=== PATIENT | male | born 1955 | race Two or more races ===

== ENCOUNTER 2022-02-01 09:47 | Emergency (ER) | payer OTHER ==
[~2022-02-01] VITALS: Ht 188 cm; Wt 103.9 kg
[2022-02-01 11:19] VITALS: BP 148/93
[2022-02-01] MEDS ORDERED: FLUORESCEIN SOD OPTH TEST STRIP OP ONE (11:30)
[2022-02-01] MEDS ORDERED: CIP03OS LEFTEYE (12:06)
== END 2022-02-01 12:09 | disposition home or self-care (01) ==
LOC: ER 09:47
DX: S05.02XA Injury of conjunctiva and corneal abrasion without foreign body, left eye, initial encounter (principal); Z79.899 Other long term (current) drug therapy; W22.8XXA Striking against or struck by other objects, initial encounter; Y93.89 Activity, other specified; Y92.89 Other specified places as the place of occurrence of the external cause; Y99.8 Other external cause status
CPT/HCPCS: 70480

== ENCOUNTER → 2024-05-02 | Outpatient (CLI) | payer OTHER ==
[~2024-05-02] MED LIST: CIP03OS LEFTEYE
[2024-05-02 11:14] LABS: Urine Bacteria None Seen /hpf (None Seen)
[2024-05-02 11:32] LABS: Basophils # (auto) 0.1 10 ^3/uL (0-0.2); Basophils % (auto) 1.1 % (0.0-2.0); Eosinophils # (auto) 0.2 10 ^3/uL (0-0.8); Eosinophils % (auto) 2.6 % (0.0-7.0); Hematocrit 50.1 % (41.0-53.0); Hemoglobin 16.7 g/dL (13.5-17.5); Lymphocytes % (auto) 44.7 % (10.0-50.0); Mean Corpuscular Hemoglobin 30.2 pg (28.0-32.0); Mean Corpuscular Hgb Conc. 33.3 g/dL (32.0-36.0); Mean Corpuscular Volume 90.9 fL (80.0-100.0); Monocytes # (auto) 0.9 10 ^3/uL (0-1.3); Monocytes % (auto) 14.1 % (0.0-12.0); Neutrophils # (auto) 2.5 10 ^3/uL (1.6-8.6); Neutrophils % (auto) 37.5 % (37.0-80.0); Nucleated Red Blood Cells % 0.1 %; Platelet Count (auto) 262 10^3/uL (140-450); Red Blood Cells 5.51 10^6/uL (4.5-5.90); Red Cell Distribution Width 13.4 % (11.8-14.3); White Blood Cell 6.6 10^3/uL (4.4-10.8)
[2024-05-02 11:53] LABS: Alanine Aminotransferase 37 U/L (7-40); Alkaline Phosphatase 65 U/L (46-116); Anion Gap 11 (5-15); Calcium 9.2 mg/dL (8.7-10.4); Carbon Dioxide 21 mmol/L (20-31); Chloride 104 mmol/L (98-107); Glucose 97 mg/dL (74-106); Sodium 136 mmol/L (136-145)
[2024-05-02 11:54] LABS: BUN/Creatinine Ratio 16.3 (10.0-20.0); Blood Urea Nitrogen 21 mg/dL (9-23)
[2024-05-02 11:55] LABS: Albumin 4.5 g/dL (3.2-4.8); Aspartate Aminotransferase 32 U/L (13-40)
[2024-05-02 11:56] LABS: Bilirubin, Total 0.7 mg/dL (0.2-1.0); Cholesterol 194 mg/dL (< 200)
[2024-05-02 12:00] LABS: HDL Cholesterol 30 mg/dL (40-59); LDL Cholesterol 141 mg/dL (< 100); Potassium 3.5 mmol/L (3.5-5.1); Total Protein 8.4 g/dL (5.7-8.2); Triglycerides 153 mg/dL (< 150)
[2024-05-02 14:22] LABS: Urine Blood TRACE /uL (Negative); Urine Clarity Clear (Clear); Urine Color Light-Yellow (Yellow); Urine Mucus FEW (None Seen); Urine Protein, UAD Negative (Negative); Urine Specific Gravity 1.015 (1.001-1.035); Urine Squamous Epithelial Cell None Seen /hpf (<5); Urine Urobilinogen Normal (Negative); Urine WBC < 1 /HPF (0-3); Urine pH 5.5 (5.0-9.0)
== END | disposition home or self-care (01) ==
LOC: LAB 10:09
PROVIDERS: ATTEND Internal Medicine
DX: I12.9 Hypertensive chronic kidney disease with stage 1 through stage 4 chronic kidney disease, or unspecified chronic kidney disease (principal); N18.2 Chronic kidney disease, stage 2 (mild); E83.52 Hypercalcemia
CPT/HCPCS: 36415; 80053; 80061; 81001; 83036; 84439; 84443; 85025; 86703; 86803

== ENCOUNTER → 2024-09-14 | Outpatient (CLI) | payer OTHER ==
[2024-09-15 10:07] LABS: Anti-Nuclear Antibody Direct Negative (Negative)
== END | disposition home or self-care (01) ==
LOC: LAB 15:11
PROVIDERS: ATTEND Internal Medicine
DX: B19.20 Unspecified viral hepatitis C without hepatic coma (principal)
CPT/HCPCS: 36415; 85652; 86038; 86141; 87902

== ENCOUNTER 2025-01-12 14:57 | Outpatient (CLI) | payer OTHER | END 2025-01-12 17:00 | disposition home or self-care (01) | LOC: LAB 14:57 | PROVIDERS: ATTEND Internal Medicine | DX: R32 Unspecified urinary incontinence (principal); Z12.5 Encounter for screening for malignant neoplasm of prostate; Z12.11 Encounter for screening for malignant neoplasm of colon | CPT/HCPCS: 84153 ==

== ENCOUNTER → 2025-01-17 | Outpatient (CLI) | payer OTHER | END | disposition home or self-care (01) | LOC: LAB 16:12 | PROVIDERS: ATTEND Internal Medicine | DX: R32 Unspecified urinary incontinence (principal); Z12.11 Encounter for screening for malignant neoplasm of colon; Z12.5 Encounter for screening for malignant neoplasm of prostate | CPT/HCPCS: 82274 ==

== ENCOUNTER 2025-02-06 13:58 | Outpatient (CLI) | payer OTHER ==
--- NOTE | 2025-02-08 18:16 | DVHSR ---
APPROVED REPORT EXAM: Two-dimensional and M-mode echocardiogram with Doppler and color Doppler. INDICATION Heart Failure RISK FACTORS Height: 74, Weight: 242 DIMENSIONS LVDd (3.8-5.7cm) LA (2D) 5.5 (1.9-4.0cm) Aortic Root 3.6 (2.0-3.7cm) LVDs (2.5-4.0cm) LA (MM) (1.9-4.0cm) Aortic Cusp Exc 1.9 (1.5-2.0cm) EF (%) 70.0 (55-70%) Rt. Atrium (1.9-4.0cm) Asc. Aorta cm Mitral Valve Mitral Mitral Stenosis E wave 1.04m/s MV Mean GR. mmHg A wave m/s MV Peak GR. 91mmHg E/A ratio 0.0 2D MVA cm2 Aortic Valve Aortic Valve Aortic Stenosis V1 0.77m/s AO Mean GR. 2mmHg V2 0.90m/s AO Peak GR. 3mmHg LVOT Diameter 2.1 (1.8-2.4cm) Doppler SANJIV 2.96cm2 Pulmonic Valve V2 0.77m/s Tricuspid Valve TR Velocity 3.15m/s RVSP 43mmHg Other Information Technically limited study due to body habitus. Conclusion Technically good study. Atrial fibrillation. Left atrial enlargement. Valves are normal. EF of 65% with normal RV function. Moderate MR. Moderate TR. No pericardial effusion masses or vegetations.
== END 2025-02-06 17:00 | disposition home or self-care (01) ==
LOC: XYW 13:58
PROVIDERS: ATTEND Internal Medicine
DX: I48.91 Unspecified atrial fibrillation (principal); I50.30 Unspecified diastolic (congestive) heart failure
CPT/HCPCS: 93306